=== PATIENT | female | born 1990 ===

== ENCOUNTER 2023-05-07 09:10 | Outpatient (CLI) | payer OTHER, SELFPAY | END 2023-05-07 09:11 | disposition home or self-care (01) | PROVIDERS: PCP Family Medicine; Visit Provider Family Medicine | DX: Z13.6 Encounter for screening for cardiovascular disorders (principal); Z13.9 Encounter for screening, unspecified | CPT/HCPCS: 80048; 80061; 85025 ==

== ENCOUNTER 2024-08-09 08:55 | Outpatient (CLI) | payer OTHER, SELFPAY | END 2024-08-09 08:56 | disposition home or self-care (01) | PROVIDERS: PCP Family Medicine; Visit Provider Family Medicine | DX: R53.83 Other fatigue (principal); Z13.228 Encounter for screening for other metabolic disorders; Z13.220 Encounter for screening for lipoid disorders; Z13.29 Encounter for screening for other suspected endocrine disorder | CPT/HCPCS: 80048; 80061; 84443 ==